=== PATIENT | female | born 1995 | race Caucasian/White ===

== ENCOUNTER → 2016-07-27 | Outpatient (CLI) | payer OTHER ==
[~2016-07-27] MED LIST: ISOVUE-370 76% 100ML VIAL (Q9967) As Ordered ONE
--- NOTE | 2016-07-28 17:03 | REP ---
Clinical: Infertility. Technique: Real time fluoroscopic evaluation performed in conjunction with the POWER AND RECOVERY SUPERINTENDENT. Findings: Rfid Specialist film of the pelvis is unremarkable. Contrast administration demonstrates normal contour to the uterus and normal bilateral fallopian tubes demonstrating bilateral spillage of contrast into the pelvis. Total fluoroscopic time: 41 seconds. Impression: 1. Bilateral fallopian tubes appear normal and patent. 2. Normal contour to the uterus. Signed by Gaudencio Nguyễn MD 07/28/2016 04:55 P
== END ==
LOC: M RADPRO 11:45
PROVIDERS: ATTEND Obstetrics & Gynecology
DX: N97.9 Female infertility, unspecified (principal)
CPT/HCPCS: 58340; 74740; Q9967

== ENCOUNTER → 2016-11-01 | Outpatient (CLI) | payer OTHER ==
[2016-11-07 00:06] LABS: HSV TYPE I IgM AB <1:10 titer (<1:10); HSV TYPE II IgM ABY <1:10 titer (<1:10)
== END ==
LOC: M WUC 16:07
PROVIDERS: ATTEND Nurse Practitioner Women's Health
DX: Z11.3 Encounter for screening for infections with a predominantly sexual mode of transmission (principal)

== ENCOUNTER → 2017-02-22 | Outpatient (REF) | payer OTHER | LOC: M LAB REF 17:22 | PROVIDERS: ATTEND Nurse Practitioner Women's Health | DX: N39.0 Urinary tract infection, site not specified (principal) ==

== ENCOUNTER → 2017-05-10 | Outpatient (REF) | payer OTHER | LOC: M LAB REF 19:56 | DX: R30.0 Dysuria (principal) | CPT/HCPCS: 87086 ==

== ENCOUNTER → 2017-12-21 | Outpatient (REF) | payer OTHER | LOC: M LAB REF 18:32 | DX: N30.01 Acute cystitis with hematuria (principal) | CPT/HCPCS: 87086 ==

== ENCOUNTER → 2018-02-05 | Outpatient (REF) | payer OTHER ==
[2018-02-05 12:06] LABS: HEMATOCRIT 41.3 % (36.0-47.0); HEMOGLOBIN 13.6 g/dl (12.0-15.5); MEAN CORPUSCULAR HEMOGLOBIN 28.3 pg (27.0-33.0); MEAN CORPUSCULAR HGB CONC 32.9 g/dl (32.0-36.5); PLATELET COUNT, AUTOMATED 289 10^3/uL (150-450); RED CELL DISTRIBUTION WIDTH 12.4 % (11.5-14.5); WHITE BLOOD COUNT 9.8 10^3/uL (4.0-10.0)
[2018-02-05 12:33] LABS: CONTROL LINE HCG INT CTR LINE PRESENT; HCG, SERUM QUALITATIVE POSITIVE (NEGATIVE)
[2018-02-05 12:41] LABS: ALBUMIN 3.5 GM/DL (3.2-5.2); ALKALINE PHOSPHATASE 71 U/L (45-117); ALT/SGPT 20 U/L (12-78); ANION GAP 8 MEQ/L (8-16); AST/SGOT 9 U/L (7-37); BILIRUBIN,TOTAL 0.5 MG/DL (0.2-1.0); BLOOD UREA NITROGEN 11 MG/DL (7-18); CALCIUM LEVEL 8.9 MG/DL (8.5-10.1); CARBON DIOXIDE LEVEL 28 MEQ/L (21-32); CHLORIDE LEVEL 101 MEQ/L (98-107); CREATININE FOR GFR 0.69 MG/DL (0.55-1.30); GLOMERULAR FILTRATION RATE > 60.0 (>60); GLUCOSE, FASTING 92 MG/DL (70-100); IRON (FE) 120 UG/DL (50-170); PERCENT SATURATION 30.4 % (13.2-45.0); POTASSIUM SERUM 4.1 MEQ/L (3.5-5.1); SODIUM LEVEL 137 MEQ/L (136-145); TOTAL IRON BINDING CAPACITY 395 UG/DL (250-450)
== END ==
LOC: M SFHCPLAZ 10:00
DX: Z00.00 Encounter for general adult medical examination without abnormal findings (principal)
CPT/HCPCS: 83550

== ENCOUNTER → 2018-02-26 | Outpatient (CLI) | payer OTHER ==
[2018-02-26 13:16] LABS: BASO # 0.1 10^3/uL (0.0-0.2); BASO % 0.5 % (0.0-1.0); EOS # 0.2 10^3/uL (0.0-0.50); EOS % 2.3 % (0.0-3.0); HEMATOCRIT 41.6 % (36.0-47.0); HEMOGLOBIN 13.6 g/dl (12.0-15.5); LYMPH # 2.1 10^3/uL (1.5-6.5); LYMPH % 22.6 % (24.0-44.0); MEAN CORPUSCULAR HEMOGLOBIN 28.2 pg (27.0-33.0); MEAN CORPUSCULAR HGB CONC 32.7 g/dl (32.0-36.5); MEAN CORPUSCULAR VOLUME 86.1 fl (80.0-96.0); MONO # 0.5 10^3/uL (0.0-0.8); MONO % 5.5 % (0.0-5.0); NEUTROPHILS # 6.4 10^3/uL (1.8-7.7); NEUTROPHILS % 67.9 % (36.0-66.0); PLATELET COUNT, AUTOMATED 290 10^3/uL (150-450); RED BLOOD COUNT 4.83 10^6/uL (4.00-5.40); WHITE BLOOD COUNT 9.5 10^3/uL (4.0-10.0)
[2018-02-26 14:37] LABS: CHLAMYDIA DNA AMPLIFICATION NEGATIVE (NEGATIVE); GC DNA AMPLIFICATION NEGATIVE (NEGATIVE)
[2018-02-27 10:25] LABS: HEPATITIS C VIRUS ABY INDEX 0.1 INDEX (<0.8); HIV 1&2 SCREEN CENTAUR NEGATIVE (NEGATIVE); RUBELLA IgG QUALITATIVE IMMUNE (IMMUNE)
== END ==
LOC: M SMT 10:44
PROVIDERS: ATTEND Advanced Practice Midwife
DX: Z36.89 Encounter for other specified antenatal screening (principal)

== ENCOUNTER → 2018-05-14 | Outpatient (CLI) | payer OTHER ==
--- NOTE | 2018-05-15 05:20 | REP ---
Clinical: Anatomical evaluation. Comparison: None . Findings: Examination demonstrates a single live intrauterine in variable presentation. motion is identified by technologist. Placenta is noted right lateral and grade grade zero without evidence for placenta previa or abruption. Amniotic fluid volume is normal. Cervix measures 6.1 cm in length and appears closed. No evidence for nuchal cord. Gestational age by LMP 20 weeks 4 days with NAVID 09/27/2018 . Gestational age by current measurements 20 weeks 4 days with NAVID 09/27/2018 . FHR equals 142 beats per minute. BPD 4.9 cm 20 weeks 6 days HC 17.7 cm 20 weeks 1 day AC 15.5 cm 20 weeks 5 days FL 3.4 cm 20 weeks 5 days HL 3.2 cm 20 weeks 5 days HC/AC ratio 1.14 Estimated weight 306 as I grams ( 48th percentile). Anatomical assessment demonstrates normal structures including cranium, choroid plexus, cavum, cerebellum/posterior fossa, facial features, lungs, four-chamber heart/ventricular outflow tracts, diaphragm, stomach, cord insertion/three-vessel cord, kidneys/bladder, spine, and extremities. Impression: Single live intrauterine in variable presentation demonstrating appropriate interval growth. Anatomical assessment is complete and normal. No gross abnormalities are identified. Electronically Signed by Gaudencio Nguyễn MD 05/15/2018 05:12 A
== END ==
LOC: M RAD 09:51
PROVIDERS: ATTEND Obstetrics & Gynecology
DX: Z34.82 Encounter for supervision of other normal pregnancy, second trimester (principal); Z3A.20 20 weeks gestation of pregnancy

== ENCOUNTER → 2018-06-11 | Outpatient (CLI) | payer OTHER ==
--- NOTE | 2018-06-11 08:55 | REP ---
RIGHT UPPER QUADRANT ABDOMINAL WALL ULTRASOUND: HISTORY: Soft mass, probable lipoma. The patient directs us to the region of the inframammary fold and states that the lump is not currently palpable. FINDINGS: Scanning of the right upper quadrant abdominal wall is performed. No cyst, mass or hernia is seen. IMPRESSION: Negative abdominal wall ultrasound. Mass not palpable at the time of the study. Electronically Signed by Victor Manuel Marquez MD 06/11/2018 09:14 A
== END ==
LOC: M RAD 06:26
PROVIDERS: ATTEND Nurse Practitioner Adult Health
DX: R19.01 Right upper quadrant abdominal swelling, mass and lump (principal)

== ENCOUNTER → 2018-07-18 | Outpatient (CLI) | payer OTHER ==
[2018-07-18 10:04] LABS: HEMATOCRIT 35.4 % (36.0-47.0); HEMOGLOBIN 11.2 g/dl (12.0-15.5); MEAN CORPUSCULAR HEMOGLOBIN 28.1 pg (27.0-33.0); MEAN CORPUSCULAR HGB CONC 31.6 g/dl (32.0-36.5); MEAN CORPUSCULAR VOLUME 88.9 fl (80.0-96.0); PLATELET COUNT, AUTOMATED 237 10^3/uL (150-450); RED BLOOD COUNT 3.98 10^6/uL (4.00-5.40); WHITE BLOOD COUNT 10.8 10^3/uL (4.0-10.0)
== END ==
LOC: M SMT 08:43
PROVIDERS: ATTEND Advanced Practice Midwife
DX: Z34.82 Encounter for supervision of other normal pregnancy, second trimester (principal); Z3A.00 Weeks of gestation of pregnancy not specified

== ENCOUNTER → 2018-09-10 | Outpatient (CLI) | payer OTHER | LOC: M SMT 08:44 | PROVIDERS: ATTEND Advanced Practice Midwife | DX: O26.893 Other specified pregnancy related conditions, third trimester (principal) ==

== ENCOUNTER 2018-10-05 17:15 | Inpatient (IN) | payer OTHER ==
[~2018-10-05] VITALS: Ht 154.9 cm; Wt 97.5 kg
[2018-10-05 17:38] VITALS: BP 145/91
[2018-10-05] MEDS ORDERED: PRENTAB9 PO (17:42)
[2018-10-05 17:51] VITALS: BP 141/90
[2018-10-05 17:54] VITALS: BP 141/88
[2018-10-05] MEDS ORDERED: VANCOMYCIN HCL 1,000 MG, VIAL MATE ADAPTER 1 EACH in D5W 250 ML IV SCH (18:00)
[2018-10-05] MEDS ORDERED: LACTATED RINGER'S 1000 ML IV STA (18:12)
--- NOTE | 2018-10-05 18:30 | NUR ---
L&D H&P HPI: 23 year old at 39+6 weeks estimated gestation. Expected date of confinement: 10/06/18. dated by an 8 week first TM US. Presents today complaining of leakage of fluid since this morning, but no painful uterine contractions. No bleeding. Reports regular movement. course uncomplicated labs: Blood type A+, antibody screen negative, rubella immune, VDRL nonreactive , hepatitis B surface antigen negative, HIV negative, hepatitis C antibody negative, GC/CT negative, aneuploidy/maternal serum screening: declined, 1 hour glucose challenge test: 127, GBS POSITIVE Vaccinations: Tdap 08/01/18 Flu vaccine 05/23/18 Radiology/OB US: no anomalies or placental abnormalities detected. History Past medical history: none Surgical history: none Medications: PNV Allergies: PCN (anaphylaxis) MANAGER MINING history: no STI/gHSV/dysplasia OB history: SAB x 1. Social history: no t/e/d Family history: No VTE. Objective Vitals: Normotensive, normal heart rate, afebrile Heart: Regular rate and rhythm. No murmurs, rubs or gallops. Lungs: Clear to auscultation bilaterally. No wheezes, crackles, rales or rhonchi. Abdomen: Uterine fundal height consistent with dates. No guarding or rebound tenderness. Extremities: No clubbing, cyanosis or edema. Normal deep tendon reflexes. Sterile vaginal exam: 1 cm, 50 %effacement, -3 station, cephalic, ruptured membranes: +Nitrazine/ferning. External monitoring: heart rate category 1 Tocodynamometer: rare ctx Assessment/Plan 23 year old at 39+6 weeks gestation. Diagnosis: prelabor rupture of membranes. Reassuring and maternal status. -Admit to labor and delivery with routine labs and orders -External monitoring and tocodynamometer -Pediatrics and anesthesia consultations as needed. -GBS prophylaxis with IV Vancomycin -Active management / Augment labor with Pitocin Dr. Awais Serrato, DO, FACOG
[2018-10-05 19:59] LABS: HEMATOCRIT 32.3 % (36.0-47.0); HEMOGLOBIN 10.2 g/dl (12.0-15.5); MEAN CORPUSCULAR HEMOGLOBIN 25.3 pg (27.0-33.0); MEAN CORPUSCULAR HGB CONC 31.6 g/dl (32.0-36.5); MEAN CORPUSCULAR VOLUME 80.1 fl (80.0-96.0); PLATELET COUNT, AUTOMATED 254 10^3/uL (150-450); RED BLOOD COUNT 4.03 10^6/uL (4.00-5.40); WHITE BLOOD COUNT 11.4 10^3/uL (4.0-10.0)
[2018-10-05 20:27] LABS: ALT/SGPT 20 U/L (12-78); BILIRUBIN,TOTAL 0.4 MG/DL (0.2-1.0); CREATININE FOR GFR 0.81 MG/DL (0.55-1.30); GLOMERULAR FILTRATION RATE > 60.0 (>60); LDH LACTATE DEHYDROGENASE 236 U/L (84-246); URIC ACID 3.2 MG/DL (2.6-6.0)
[2018-10-05] MEDS: LR 1,000 ML IV SCH (20:27)
[2018-10-05] MEDS ORDERED: OXYTOCIN DRIP 30 UNITS in APPROPRIATE DILUENT 1 EA IV SCH (23:15)
[2018-10-06] VITALS (35 sets, daily range): BP systolic 116–148; BP diastolic 58–90
--- NOTE | 2018-10-06 04:35 | NUR ---
Progress Note Pt comfortable. No VB VSS,normotensive, afebrile SVE: 50/-2 FHR: Cat I [place]: ctx's every 2-3 min; pit at 6mU/min Reassuring maternal and status. Difficulty achieving active labor over last several hours despite Pitocin -Continue Pitocin Lala Serrato DO
[2018-10-06] MEDS ORDERED: VANCOMYCIN HCL 1,000 MG, VIAL MATE ADAPTER 1 EACH in D5W 250 ML IV SCH (08:30)
--- NOTE | 2018-10-06 10:13 | NUR ---
Progress Note Pt starting to feel very uncomfortable with contractions. No bloody show, but has LOF/clear. VSS,normotensive, afebrile SVE: 490/-2, cephalic, clear fluid EFM: Cat I [place]: ctxs every 3-4min; pit at 16mU/min A/P: Early active labor. Reassuring maternal and status. -Continue Pitfela Serrato,
[2018-10-06] MEDS: LR 1,000 ML IV SCH ×2 (10:33→19:04)
[2018-10-06] MEDS ORDERED: FENTANYL 2MCG/ML ROPIVACAINE 0.2% IN 0.9% NACL 100ML IVBAG As Ordered ONE (11:25)
[2018-10-06] MEDS ORDERED: NALOXONE INJ 0.4 MG/1 ML VIAL (J2310) IV PRN (13:00)
[2018-10-06] MEDS ORDERED: EPIDURAL/PCA KEYS XX PRN (13:00)
[2018-10-06] MEDS ORDERED: diphenhydrAMINE INJ 50MG/ML VIAL (J1200) IV PRN (13:00)
[2018-10-06] MEDS ORDERED: LACTATED RINGER'S 1000 ML IV PRN (13:00)
[2018-10-06] MEDS ORDERED: ePHEDrine SULFATE 25 MG/5 ML(5MG/ML) SYRINGE IV PRN (13:00)
[2018-10-06] MEDS ORDERED: EPIDURAL COMMENT XX SCH (13:00)
[2018-10-06] MEDS ORDERED: FENTANYL/ROPIVACAINE/NACL BAG 100 ML EPIDURAL SCH (13:00)
[2018-10-06] MEDS ORDERED: REFRIGERATOR IV KEYS XX PRN (13:00)
[2018-10-06] MEDS ORDERED: ONDANSETRON 4MG/2ML VIAL (J2405) IV PRN ×2 (13:00→19:15)
--- NOTE | 2018-10-06 15:25 | NUR ---
Progress Note Pt starting to feel very uncomfortable with contractions. No bloody show, but has LOF/clear. VSS,normotensive, afebrile SVE: 5-6/100/-1, cephalic, clear fluid IUPC placed EFM: Cat I [place]: ctxs every 3-4min; pit at 20mU/min A/P: Active labor. Reassuring maternal and status. -Continue Pitocin Lala Serrato,
--- NOTE | 2018-10-06 17:41 | NUR ---
Progress Note Pt comfortable with epidural. +bloody show. VSS, normotensive, normal HR, afebrile Cat I FHR [place]: ctxs every 2-5min; Pit 20mU/min SVE: c/c/+1 A/P: Second stage of labor. Reassuring maternal and status. -Initiate maternal pushing efforts; pt instructed on pushing. Lala Serrato, DO
[2018-10-06] MEDS ORDERED: OXYTOCIN DRIP 30 UNITS in APPROPRIATE DILUENT 1 EA IV SCH (19:04)
[2018-10-06] MEDS ORDERED: ACETAMINOPHEN 500 MG TAB PO PRN (19:15)
[2018-10-06] MEDS ORDERED: DOCUSATE SODIUM 100 MG CAP PO PRN (19:15)
[2018-10-06] MEDS ORDERED: RHOGAM 300 MCG (1500 IU) INJ (J2790) IM SCH (19:15)
[2018-10-06] MEDS ORDERED: MEASLES,MUMPS,RUBELLA VACCINE INJ (MMR-II) (90707) SC SCH (19:15)
[2018-10-06] MEDS ORDERED: IBUPROFEN 800 MG TAB PO PRN (19:15)
[2018-10-06] MEDS ORDERED: DIBUCAINE 1% OINTMENT 30GM TOP PRN (19:15)
[2018-10-06] MEDS ORDERED: PROMETHAZINE 25 MG TAB PO PRN (19:15)
[2018-10-06] MEDS ORDERED: IBUPROFEN 600 MG TAB PO PRN (19:15)
[2018-10-06] MEDS ORDERED: ACETAMINOPHEN TAB 650MG DOSE (2X325MG) PO PRN (19:15)
--- NOTE | 2018-10-06 19:19 | NUR ---
Delivery note Spontaneous vaginal delivery Estimated gestational age at delivery: 40+0 weeks The active phase and second stage of labor progressed in normal fashion with epidural anesthesia. Patient received Pitocin labor augmentation. She received a full course of GBS prophylaxis. Pt had screened GBS+ The head delivered left occiput anterior and restituted left occiput transverse. No nuchal cord was noted. The anterior shoulder delivered with gentle downward guidance and the remainder of the body delivered with ease. Cord clamping was delayed for approximately 1 minute after delivery. After doubly clamping the cord, I had the FOB cut the cord. The was placed on the patient's chest for immediate bonding. [place] data: Apgars 8 and 10. weight 3140 grams 6 pounds, 15 ounces. Time of delivery: 1853. Sex: Male. The third stage of labor was actively managed with a bolus of IV Pitocin (30 units in 500 mL of normal saline). The placenta delivered completely intact with no missing cotyledons at 1858. A three-vessel cord with a central insertion was noted. After delivery of the placenta, the uterine fundus was approximately 2 cm below the umbilicus and firm. IV Pitocin was continued to maintain uterine tone. A normal, low level of uterine bleeding was noted. The cervix, vagina, vulva and perineum were inspected for lacerations. No laceration was noted. Excellent hemostasis was noted. Estimated blood loss: 200ml. All sponges, needles, and instruments were accounted for per PLANT MACHINIST department protocol. Awais Serrato D.O., F.Sebastian.Satish.OKayceG.
[2018-10-07] MEDS: LR 1,000 ML IV SCH (03:04)
[2018-10-07 05:50] VITALS: BP 128/73
[2018-10-07] MEDS: PRENATAL VITAMINS CHEWABLE TABLET PO SCH (09:19)
--- NOTE | 2018-10-07 09:23 | NUR ---
Day 1 Status post , uncomplicated Subjective Pain is well controlled. Lochia decreasing and minimal. Voiding spontaneously. Tolerating a regular diet. Ambulating without any assistance. Denies any subjective fever/chills/nausea/vomiting/headache/visual changes/shortness of breath/chest pain. Objective Vitals: Normotensive, normal heart rate, afebrile, adequate urine output. Heart: regular, rate, and rhythm. no murmurs/gallops/rubs Lungs: clear to auscultation bilaterally, no wheezes/crackles/rales/ronchi Abd: soft, nontender, nondistended, uterine fundus is 2cm below umbilicus and firm Ext: no significant edema, nontender, negative Bita's bilaterally. Assessment/Plan: day 1. Recovering well. Hemodynamically stable, afebrile, good pain control. -Routine care -Discharge to home tomorrow -Routine infectious, fever, pain, and bleeding precautions reviewed Dhaval Presley.Alyssa., F.A.C.O.G.
[2018-10-07 18:00] VITALS: BP 129/84
[2018-10-08] MEDS ORDERED: IBUP80TA PO (06:00)
[2018-10-08] MEDS ORDERED: ACET-683 PO (06:00)
[2018-10-08] MEDS: LR 1,000 ML IV SCH (06:03)
[2018-10-08 06:43] VITALS: BP 140/94
[2018-10-08] MEDS: PRENATAL VITAMINS CHEWABLE TABLET PO SCH (08:15)
== END 2018-10-08 10:30 | disposition home or self-care (01) | DRG 560 ==
LOC: M LDO 17:15 → M LDI 18:11 → M OBS 10-06 22:20
PROVIDERS: ADMIT Obstetrics & Gynecology; ATTEND Obstetrics & Gynecology
PROC: 10E0XZZ Delivery of Products of Conception, External Approach (ICD-10-PCS; principal; 2018-10-06)
DX: O42.02 Full-term premature rupture of membranes, onset of labor within 24 hours of rupture (principal); O99.824 Streptococcus B carrier state complicating childbirth; Z3A.39 39 weeks gestation of pregnancy; Z37.0 Single live birth

== ENCOUNTER → 2019-04-08 | Outpatient (CLI) | payer OTHER, MEDICAID ==
[~2019-04-08] MED LIST changes: +ACET-683 PO; +IBUP80TA PO; -ISOVUE-370 76% 100ML VIAL (Q9967) As Ordered ONE; +PRENTAB9 PO
[2019-04-08 13:02] LABS: BASO % 0.4 % (0.0-1.0); EOS # 0.1 10^3/uL (0.0-0.5); EOS % 1.4 % (0.0-3.0); LYMPH # 1.9 10^3/uL (1.5-5.0); MEAN CORPUSCULAR HEMOGLOBIN 27.7 pg (27.0-33.0); MEAN CORPUSCULAR HGB CONC 32.5 g/dl (32.0-36.5); MEAN CORPUSCULAR VOLUME 85.3 fl (80.0-96.0); MONO # 0.4 10^3/uL (0.0-0.8); MONO % 5.1 % (0.0-5.0); NEUTROPHILS # 5.4 10^3/uL (1.5-8.5); NEUTROPHILS % 68.6 % (36.0-66.0); PLATELET COUNT, AUTOMATED 276 10^3/uL (150-450); RED BLOOD COUNT 4.69 10^6/uL (4.00-5.40); WHITE BLOOD COUNT 7.9 10^3/uL (4.0-10.0)
[2019-04-08 16:13] LABS: CHLAMYDIA DNA AMPLIFICATION NEGATIVE (NEGATIVE); GC DNA AMPLIFICATION NEGATIVE (NEGATIVE)
[2019-04-09 10:45] LABS: HEPATITIS C VIRUS ABY INDEX < 0.0 INDEX (<0.8); HIV 1&2 SCREEN CENTAUR NEGATIVE (NEGATIVE); RUBELLA IgG QUALITATIVE IMMUNE (IMMUNE)
== END ==
LOC: M PLALAB 10:42
PROVIDERS: ATTEND Advanced Practice Midwife
DX: Z33.1 Pregnant state, incidental (principal)

== ENCOUNTER → 2019-06-10 | Outpatient (CLI) | payer OTHER ==
--- NOTE | 2019-06-10 10:23 | REP ---
REASON FOR EXAM: anatomy. COMPARISON EXAM: None. Multiple ultrasonographic images of the gravid uterus show a single living intrauterine gestation in the transverse head to the maternal left position. Doppler interrogation of the heart shows a heart rate of 160 beats per minute. The placenta is posterior and not low lying. The subjective amniotic fluid volume is within normal limits. The cervix measures 3.9 cm in length and is closed. Evaluation of the maternal adnexal spaces shows no abnormalities. BPD 3.9 cm = 17 weeks 6 days HC 14.7 cm = 17 weeks 6 days AC 12.7 cm = 18 weeks 2 days FL 2.9 cm = 18 weeks 6 days The estimated weight is 241 grams which is at the 52nd percentile for an 18 week 2 day gestational age. Structures visualized are unremarkable as follows: thalami, cavum septum pellucidum, cerebellum, cistern magna, cerebral ventricles, stomach, kidneys, cord insertion, three vessel umbilical cord, urinary bladder, spine, upper and lower extremities. Structures not well seen are as follows: facial features, four chamber heart, and both right and left ventricular outflow tracts. The technologist has placed notation in the worksheet that "in some views there appears to be an anechoic area near the heart and left pleural cavity. This is seen separate from stomach and above diaphragm." I cannot confirm that finding my the images provided. IMPRESSION: Single living intrauterine gestation as described above with an estimated gestational age of 18 weeks 1 day via composite criteria and an estimated date of delivery of 11/10/2019 by today's exam. No anomalies were detected, however, I recommend followup to better visualize those anatomical structures not well seen today as described above and to reevaluate the potential finding seen by the technologist also described above.
== END ==
LOC: M WHC 08:23
PROVIDERS: ATTEND Specialist
DX: Z34.82 Encounter for supervision of other normal pregnancy, second trimester (principal); Z3A.18 18 weeks gestation of pregnancy

== ENCOUNTER → 2019-07-15 | Outpatient (CLI) | payer OTHER ==
--- NOTE | 2019-07-16 04:26 | REP ---
Clinical: Anatomical evaluation. Comparison: 06/10/2019 . Findings: Examination demonstrates a single live intrauterine in cephalic presentation. motion is identified by technologist. Placenta is noted posterior and grade I without evidence for placenta previa or abruption. Amniotic fluid volume is normal. Cervix measures 4.3 cm in length and appears closed. No evidence for nuchal cord. Gestational age by LMP 23 weeks 2 days with NAVID 11/09/2019 . Gestational age by current measurements 23 weeks 5 days with NAVID 11/12/2019 . FHR equals 140 beats per minute. Estimated weight 688 grams ( 78th percentile). Anatomical assessment demonstrates normal structures including cranium, choroid plexus, cavum, cerebellum/posterior fossa, facial features, lungs, four-chamber heart/ventricular outflow tracts, diaphragm, stomach, cord insertion/three-vessel cord, kidneys/bladder. Impression: Single live intrauterine in cephalic presentation demonstrating appropriate interval growth. In conjunction with prior examination anatomical assessment is complete and normal.
== END ==
LOC: M WHC 11:16
PROVIDERS: ATTEND Advanced Practice Midwife
DX: Z36.2 Encounter for other antenatal screening follow-up (principal); Z3A.23 23 weeks gestation of pregnancy

== ENCOUNTER → 2019-08-05 | Outpatient (REF) | payer OTHER, MEDICAID ==
[2019-08-05 14:16] LABS: HEMATOCRIT 36.2 % (36.0-47.0); HEMOGLOBIN 11.4 g/dl (12.0-15.5); MEAN CORPUSCULAR HEMOGLOBIN 27.2 pg (27.0-33.0); MEAN CORPUSCULAR HGB CONC 31.5 g/dl (32.0-36.5); MEAN CORPUSCULAR VOLUME 86.4 fl (80.0-96.0); PLATELET COUNT, AUTOMATED 230 10^3/uL (150-450); RED BLOOD COUNT 4.19 10^6/uL (4.00-5.40); WHITE BLOOD COUNT 11.2 10^3/uL (4.0-10.0)
== END ==
LOC: M PLALAB 10:50
PROVIDERS: ATTEND Advanced Practice Midwife
DX: Z34.92 Encounter for supervision of normal pregnancy, unspecified, second trimester (principal)

== ENCOUNTER → 2019-09-23 | Outpatient (CLI) | payer OTHER ==
--- NOTE | 2019-09-23 13:46 | REP ---
OB ULTRASOUND: Real-time sonographic evaluation of the gravid uterus performed. There is a single intrauterine gestation. The estimated gestational age is 33 weeks 2 days, EDC 11/09/2019. The cervix is closed and measures 2.2 cm in length. heart rate 155 beats per minute. Amniotic fluid within normal limits. YESENIA 13.6, normal range 8.2 to 24.6. position is vertex. Placenta posterior with no previa.
== END ==
LOC: M WHC 10:21
PROVIDERS: ATTEND Advanced Practice Midwife
DX: Z34.83 Encounter for supervision of other normal pregnancy, third trimester (principal)

== ENCOUNTER → 2019-10-14 | Outpatient (REF) | payer OTHER, MEDICAID | LOC: M SFHCWAGY 08:43 | PROVIDERS: ATTEND Specialist | DX: Z11.8 Encounter for screening for other infectious and parasitic diseases (principal) ==

== ENCOUNTER 2019-11-11 23:43 | Inpatient (IN) | payer OTHER, MEDICAID ==
[~2019-11-11] VITALS: Ht 154.9 cm; Wt 94.3 kg
[2019-11-12] VITALS (66 sets, daily range): BP systolic 86–131; BP diastolic 51–84
[2019-11-12 00:51] LABS: HEMATOCRIT 31.2 % (36.0-47.0); HEMOGLOBIN 9.7 g/dl (12.0-15.5); MEAN CORPUSCULAR HEMOGLOBIN 24.3 pg (27.0-33.0); MEAN CORPUSCULAR HGB CONC 31.1 g/dl (32.0-36.5); PLATELET COUNT, AUTOMATED 204 10^3/uL (150-450); WHITE BLOOD COUNT 9.3 10^3/uL (4.0-10.0)
[2019-11-12] MEDS ORDERED: LACTATED RINGER'S 1000 ML IV STA (01:46)
[2019-11-12] MEDS ORDERED: OXYTOCIN DRIP 30 UNITS in IV 1 EA IV SCH ×2 (02:15→14:47)
--- NOTE | 2019-11-12 02:18 | HPEPDOC ---
Obstetrical History & Physical General Date of Admission Nov 11, 2019 at 23:43 History of Present Illness Meeta is a 24yo with SIUP at 40w3d by lmp c/w early u/s who presents today for scheduled elective IOL at term. She feels well with no complaints, having occasional ctx that she feels but not regular/painful yet. No LOF or vaginal bleeding. Good movement. 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 Surgical History: Denies/None Family History Significant Family History: No pertinent family hx Social History Marital Status: Family situation: Spouse/partner home Psychosocial History: No pertinent psych hx * Smoker: non-smoker Alcohol: Denies Drugs: denies Allergies Coded Allergies: Penicillins (Verified Allergy, Severe, "THROAT CLOSES", 10/05/18) Medications Scheduled No.137/Iron/Folic Acd ( Vitamin Tablet) 1 Each Tablet, 1 TAB PO DAILY Scheduled PRN Acetaminophen (Acetaminophen) 500 Mg Tablet, 1,000 MG PO Q6HP PRN for PAIN Ibuprofen (Ibuprofen) 800 Mg Tablet, 800 MG PO Q8HP PRN for PAIN Physical Examination Physical Examination GENERAL: Alert and oriented times three. ABDOMEN: Gravid and non-tender to touch. FETUS: Is vertex (VTX) by sterile vaginal examination (SVE) EXTREMITIES: No edema of BLE Laboratory Data 24H LABS Laboratory Tests 2 11/11/19 23:50: Serology Scanned Report Hepatitis B Testing 11/12/19 00:45: Nucleated Red Blood Cells % (auto) 0.0 CBC/BMP Laboratory Tests 11/12/19 00:45 Pertinent Laboratoy Data Blood Type: A+ RBC Antibody Screen: Negative HIV: Negative Hepatitis B: Negative Hepatitis C: Negative Rapid Plasma Reagin: Nonreactive Rubella: Immune Chlamydia/Gonorrhea: Negative Group B Streptococcus: Negative Glucose Tolerance Test: 89 Anatomy Ultrasound Ultrasound Date: Jun 10, 2019 Placenta Location: Posterior Normal Anatomy: Yes Placenta Previa: No Steroid Therapy Steroid Therapy: No Vaginal Examination Dilation: 4 cm Effacement: 80% Station: -2 Cervical Consistency: Soft Cervical Position: Posterior Presentation: Cephalic presentation Assessment Heart Rate (FHR): 150 Variability: Moderate Accelerations: Positive Decelerations: None Tocometer Contractions: Yes Frequency: irregular Assessment/Plan Assessment Meeta is a 24yo with SIUP at 40w3d by lmp c/w early u/s undergoing elective IOL at term. Vitals wnl, benign exam. Cat I FHRT with rare ctx. Cep halic, SCE 80/-2, membrane sweeping done. Uncomplicated PMhx and course. Proven to [id number]. GBS negative. Plan Admit and orient. Power Systems Engineer and consent. Diet: clear liquids Group B Streptococcus (GBS) negative Labs and intravenous (IV) per unit protocol. Counseled on Pitocin and induction of labor (IOL). Lactated Ringers (LR): Bolus 800 mL, then at 125 mL/hr. Candidate for IV pain medications in latent labor and epidural in active labor MD Shubham Mcclelland Katrina D MD Nov 12, 2019 02:18
[2019-11-12] MEDS ORDERED: BUTORPHANOL 2 MG/ML INJ (J0595) IV PRN (02:45)
[2019-11-12] MEDS ORDERED: FENTANYL 2MCG/ML ROPIVACAINE 0.2% IN 0.9% NACL 100ML IVBAG As Ordered ONE (05:55)
[2019-11-12] MEDS ORDERED: ePHEDrine SULFATE 25 MG/5 ML(5MG/ML) SYRINGE As Ordered ONE (07:08)
[2019-11-12] MEDS: ePHEDrine SULFATE 25 MG/5 ML(5MG/ML) SYRINGE IV PRN ×2 (07:11→07:30)
[2019-11-12] MEDS: LR 1,000 ML IV SCH ×2 (07:34→10:31)
[2019-11-12] MEDS ORDERED: NALOXONE INJ 0.4MG/1ML VIAL (J2310 PER 1MG) IV PRN (08:15)
[2019-11-12] MEDS ORDERED: LACTATED RINGER'S 1000 ML IV PRN (08:15)
[2019-11-12] MEDS ORDERED: ONDANSETRON 4MG/2ML VIAL IV PRN (08:15)
[2019-11-12] MEDS ORDERED: EPIDURAL/PCA KEYS XX PRN (08:15)
[2019-11-12] MEDS ORDERED: diphenhydrAMINE 50MG/ML VIAL (J1200) IV PRN (08:15)
[2019-11-12] MEDS ORDERED: REFRIGERATOR IV KEYS XX PRN (08:15)
[2019-11-12] MEDS ORDERED: EPIDURAL COMMENT XX SCH (08:15)
[2019-11-12] MEDS ORDERED: FENTANYL/ROPIVACAINE/NACL BAG 100 ML EPIDURAL SCH (08:15)
[2019-11-12] MEDS ORDERED: ACETAMINOPHEN TAB 650MG DOSE (2X325MG) PO PRN (15:00)
[2019-11-12] MEDS ORDERED: MEASLES,MUMPS,RUBELLA VACCINE INJ (MMR-II) (90707) SC SCH (15:00)
[2019-11-12] MEDS ORDERED: DIBUCAINE 1% OINTMENT 30GM TOP PRN (15:00)
[2019-11-12] MEDS ORDERED: ACETAMINOPHEN 500 MG TAB PO PRN (15:00)
[2019-11-12] MEDS ORDERED: METHYLERGONOVINE MALEATE 0.2 MG TAB PO PRN (15:00)
[2019-11-12] MEDS ORDERED: RHOGAM 300 MCG (1500 IU) INJ (J2790) IM SCH (15:00)
[2019-11-12] MEDS ORDERED: IBUPROFEN 600MG TAB PO PRN (15:00)
[2019-11-12] MEDS ORDERED: DOCUSATE SODIUM 100 MG CAP PO PRN (15:00)
[2019-11-12] MEDS ORDERED: SLF 3 ML SYR IV PRN (16:00)
[2019-11-12] MEDS: IBUPROFEN 800 MG TAB PO PRN (17:47)
[2019-11-12] MEDS: SLF 3 ML SYR IV SCH (19:54)
[2019-11-13] MEDS: IBUPROFEN 800 MG TAB PO PRN ×2 (05:43→16:48)
[2019-11-13] MEDS: SLF 3 ML SYR IV SCH (05:43)
[2019-11-13 06:09] VITALS: BP 120/62
[2019-11-13] MEDS: PRENATAL VITAMINS CHEWABLE TABLET PO SCH (07:50)
[2019-11-13 18:23] VITALS: BP 121/84
[2019-11-14] MEDS: IBUPROFEN 800 MG TAB PO PRN (02:02)
[2019-11-14 05:28] VITALS: BP 123/78
[2019-11-14] MEDS: PRENATAL VITAMINS CHEWABLE TABLET PO SCH (08:31)
== END 2019-11-14 11:15 | disposition home or self-care (01) | DRG 560 ==
LOC: M LDI 23:43 → M OBS 11-12 17:20
PROVIDERS: ADMIT Obstetrics & Gynecology; ATTEND Obstetrics & Gynecology
PROC: 10E0XZZ Delivery of Products of Conception, External Approach (ICD-10-PCS; principal; 2019-11-11)
PROC: 3E033VJ Introduction of Other Hormone into Peripheral Vein, Percutaneous Approach (ICD-10-PCS; 2019-11-11)
DX: O48.0 Post-term pregnancy (principal); Z37.0 Single live birth; Z3A.40 40 weeks gestation of pregnancy

== ENCOUNTER → 2020-02-10 | Outpatient (REF) | payer OTHER, MEDICAID | LOC: M SFHCWAGY 17:15 | PROVIDERS: ATTEND Nurse Practitioner Women's Health | DX: Z12.4 Encounter for screening for malignant neoplasm of cervix (principal); Z01.419 Encounter for gynecological examination (general) (routine) without abnormal findings ==

== ENCOUNTER → 2021-04-18 | Outpatient (CLI) | payer OTHER ==
[2021-04-18 15:14] LABS: HEMATOCRIT 36.6 % (36.0-47.0); HEMOGLOBIN 11.9 g/dl (12.0-15.5); MEAN CORPUSCULAR HEMOGLOBIN 27.5 pg (27.0-33.0); MEAN CORPUSCULAR HGB CONC 32.5 g/dl (32.0-36.5); MEAN CORPUSCULAR VOLUME 84.5 fl (80.0-96.0); PLATELET COUNT, AUTOMATED 226 10^3/uL (150-450); RED BLOOD COUNT 4.33 10^6/uL (4.00-5.40); WHITE BLOOD COUNT 9.4 10^3/uL (4.0-10.0)
[2021-04-18 16:31] LABS: HEPATITIS C VIRUS ABY INDEX < 0.0 INDEX (<0.8); HIV 1&2 SCREEN CENTAUR NEGATIVE (NEGATIVE)
[2021-04-18 17:35] LABS: GC DNA AMPLIFICATION NEGATIVE (NEGATIVE)
== END ==
LOC: M PLALAB 13:54
PROVIDERS: ATTEND Advanced Practice Midwife
DX: Z34.91 Encounter for supervision of normal pregnancy, unspecified, first trimester (principal)

== ENCOUNTER → 2021-06-24 | Outpatient (CLI) | payer OTHER | LOC: M WHC 13:53 | PROVIDERS: ATTEND Specialist | DX: Z34.82 Encounter for supervision of other normal pregnancy, second trimester (principal); Z3A.19 19 weeks gestation of pregnancy ==

== ENCOUNTER → 2021-08-04 | Outpatient (CLI) | payer OTHER | LOC: M WHC 09:56 | PROVIDERS: ATTEND Obstetrics & Gynecology | DX: Z36.2 Encounter for other antenatal screening follow-up (principal); Z3A.25 25 weeks gestation of pregnancy ==

== ENCOUNTER → 2021-08-24 | Outpatient (CLI) | payer OTHER, MEDICAID ==
[2021-08-24 16:39] LABS: HEMATOCRIT 33.8 % (36.0-47.0); HEMOGLOBIN 10.8 g/dl (12.0-15.5); MEAN CORPUSCULAR HEMOGLOBIN 27.9 pg (27.0-33.0); MEAN CORPUSCULAR VOLUME 87.3 fl (80.0-96.0); PLATELET COUNT, AUTOMATED 210 10^3/uL (150-450); RED BLOOD COUNT 3.87 10^6/uL (4.00-5.40); WHITE BLOOD COUNT 10.5 10^3/uL (4.0-10.0)
[2021-08-24 18:28] LABS: GC DNA AMPLIFICATION NEGATIVE (NEGATIVE)
== END ==
LOC: M PLALAB 12:19
PROVIDERS: ATTEND Obstetrics & Gynecology
DX: Z34.92 Encounter for supervision of normal pregnancy, unspecified, second trimester (principal); Z3A.22 22 weeks gestation of pregnancy

== ENCOUNTER → 2021-10-19 | Outpatient (REF) | payer OTHER, MEDICAID | LOC: M SFHCWAGY 12:56 | PROVIDERS: ATTEND Obstetrics & Gynecology | DX: Z36.85 Encounter for antenatal screening for Streptococcus B (principal); Z3A.36 36 weeks gestation of pregnancy ==

== ENCOUNTER 2021-11-16 08:48 | Inpatient (IN) | payer OTHER, MEDICAID ==
[2021-11-16] VITALS (20 sets, daily range): BP systolic 108–179; BP diastolic 62–103
[~2021-11-16] VITALS: Ht 154.9 cm; Wt 94.9 kg
[2021-11-16] MEDS ORDERED: HOME MED LIST COMPLETE! XX SCH (09:10)
[2021-11-16] MEDS ORDERED: LACTATED RINGER'S 1000 ML IV STA (09:31)
[2021-11-16] MEDS ORDERED: TRANEXAMIC ACID INJection 1,000 MG in NS 100 ML IV PRN (09:35)
[2021-11-16] MEDS ORDERED: OXYTOCIN INJ 10 UNITS/ML VIAL (J2590) IM PRN (09:35)
[2021-11-16] MEDS ORDERED: OXYTOCIN DRIP 30 UNITS in IV 1 EA IV PRN ×4 (09:35)
[2021-11-16] MEDS ORDERED: CARBOPROST TROMETHAMINE 250 MCG/ML AMP IM PRN (09:35)
[2021-11-16] MEDS ORDERED: LR 1,000 ML IV SCH (09:35)
[2021-11-16] MEDS ORDERED: LIDOCAINE 1% MDV 20ML VIAL INFIL PRN (09:35)
[2021-11-16] MEDS ORDERED: METHYLERGONOVINE MALEATE 0.2 MG/ML VIAL (J2210) IM PRN ×2 (09:35→12:05)
[2021-11-16 10:05] LABS: HEMATOCRIT 33.2 % (36.0-47.0); HEMOGLOBIN 10.3 g/dl (12.0-15.5); MEAN CORPUSCULAR HEMOGLOBIN 24.5 pg (27.0-33.0); MEAN CORPUSCULAR VOLUME 78.9 fl (80.0-96.0); PLATELET COUNT, AUTOMATED 196 10^3/uL (150-450); RED BLOOD COUNT 4.21 10^6/uL (4.00-5.40); WHITE BLOOD COUNT 11.9 10^3/uL (4.0-10.0)
[2021-11-16] MEDS ORDERED: OXYTOCIN 30 UNITS IN 0.9% NaCl 500ML IV BAG (J2590) As Ordered ONE (10:13)
[2021-11-16] MEDS ORDERED: DOCUSATE SODIUM 100MG CAPSULE PO PRN (10:55)
[2021-11-16] MEDS ORDERED: ACETAMINOPHEN TAB 650MG DOSE (2X325MG) PO PRN (10:55)
[2021-11-16] MEDS ORDERED: ACETAMINOPHEN 500 MG TAB PO PRN (10:55)
[2021-11-16] MEDS ORDERED: METHYLERGONOVINE MALEATE 0.2 MG TAB PO PRN (10:55)
[2021-11-16] MEDS ORDERED: RHOGAM 300 MCG (1500 IU) INJ (J2790) IM SCH (10:55)
[2021-11-16] MEDS ORDERED: IBUPROFEN 600MG TAB PO PRN (10:55)
[2021-11-16] MEDS ORDERED: IBUPROFEN 800 MG TAB PO PRN (10:55)
[2021-11-16] MEDS ORDERED: OXYTOCIN DRIP 30 UNITS in IV 1 EA IV SCH (12:05)
[2021-11-16] MEDS: METHYLERGONOVINE MALEATE 0.2 MG TAB PO SCH ×2 (15:01→20:25)
[2021-11-17] MEDS: METHYLERGONOVINE MALEATE 0.2 MG TAB PO SCH ×4 (00:58→12:23)
[2021-11-17 05:54] VITALS: BP 129/76
[2021-11-17] MEDS ORDERED: PRENATAL VITAMINS CHEWABLE TABLET PO SCH (09:00)
[2021-11-18] MEDS ORDERED: MEASLES,MUMPS,RUBELLA VACCINE INJ (MMR-II) (90707) SC.IMMUN ONE (09:00)
== END 2021-11-17 18:00 | disposition home or self-care (01) | DRG 560 ==
LOC: M LDO 08:48 → M LDI 09:24 → M OBS 17:19
PROVIDERS: ADMIT Advanced Practice Midwife; ATTEND Advanced Practice Midwife
PROC: 10E0XZZ Delivery of Products of Conception, External Approach (ICD-10-PCS; principal; 2021-11-16)
DX: O80 Encounter for full-term uncomplicated delivery (principal); Z37.0 Single live birth; Z3A.39 39 weeks gestation of pregnancy

== ENCOUNTER → 2023-02-19 | Outpatient (REF) | payer OTHER | LOC: M PLALAB 10:28 | PROVIDERS: ATTEND Advanced Practice Midwife | DX: Z12.4 Encounter for screening for malignant neoplasm of cervix (principal) ==

== ENCOUNTER → 2023-11-09 | Outpatient (REF) | payer OTHER | LOC: M LAB REF 12:48 | PROVIDERS: ATTEND Nurse Practitioner Family | DX: R30.0 Dysuria (principal) ==

== ENCOUNTER → 2023-12-27 | Outpatient (CLI) | payer OTHER ==
[2023-12-27 13:54] LABS: BASO # 0.1 10^3/uL (0.0-0.2); BASO % 0.6 % (0.0-1.0); EOS # 0.2 10^3/uL (0.0-0.5); EOS % 2.4 % (0.0-3.0); HEMATOCRIT 42.3 % (36.0-47.0); LYMPH % 24.1 % (24.0-44.0); MEAN CORPUSCULAR HEMOGLOBIN 29.2 pg (27.0-33.0); MEAN CORPUSCULAR HGB CONC 33.1 g/dl (32.0-36.5); MEAN CORPUSCULAR VOLUME 88.3 fl (80.0-96.0); MONO # 0.4 10^3/uL (0.0-0.8); MONO % 4.5 % (2.0-8.0); NEUTROPHILS # 5.8 10^3/uL (1.5-8.5); NEUTROPHILS % 68.2 % (36.0-66.0); PLATELET COUNT, AUTOMATED 235 10^3/uL (150-450); RED BLOOD COUNT 4.79 10^6/uL (4.00-5.40); WHITE BLOOD COUNT 8.5 10^3/uL (4.0-10.0)
[2023-12-27 13:58] LABS: ALBUMIN 3.5 G/DL (3.2-5.2); ALKALINE PHOSPHATASE 82 U/L (46-116); ALT/SGPT 17 U/L (7.0-40); AST/SGOT 10 U/L (<34); BILIRUBIN,TOTAL 0.7 MG/DL (0.3-1.2); BLOOD UREA NITROGEN 11 MG/DL (9-23); CALCIUM LEVEL 9.7 MG/DL (8.5-10.1); CARBON DIOXIDE LEVEL 29 MMOL/L (20-31); CHLORIDE LEVEL 108 MMOL/L (98-107); CHOLESTEROL LEVEL 190 MG/DL (<200); CHOLESTEROL RISK RATIO 3.32 (<5); CREATININE FOR GFR 0.89 MG/DL (0.55-1.30); GLOMERULAR FILTRATION RATE > 60.0 (>60); GLUCOSE, FASTING 83 MG/DL (60-100); HDL CHOLESTEROL 57.2 MG/DL (>40); LDL CHOLESTEROL 109.2 MG/DL (<100); NON-HDL-C 132.8 MG/DL; POTASSIUM SERUM 4.4 MMOL/L (3.5-5.1); SODIUM LEVEL 141 MMOL/L (136-145); TOTAL PROTEIN 7.2 G/DL (5.7-8.2); TRIGLYCERIDES LEVEL 118 MG/DL (<150)
[2023-12-27 13:59] LABS: FREE T4 1.18 NG/DL (0.89-1.76); THYROID STIMULATING HORMONE 1.242 uIU/ML (0.55-4.78)
[2023-12-27 14:19] LABS: HEMOGLOBIN A1c 5.2 % (4.0-6.0)
[2023-12-30 18:02] LABS: HSV SOURCE Serum; HSV-1 DNA Not Detected (Not Detected); HSV-2 DNA Not Detected (Not Detected)
== END ==
LOC: M PLALAB 11:13
PROVIDERS: ATTEND Student in an Organized Health Care Education/Training Program
DX: E55.9 Vitamin D deficiency, unspecified (principal); Z76.89 Persons encountering health services in other specified circumstances; Z13.1 Encounter for screening for diabetes mellitus; B00.1 Herpesviral vesicular dermatitis

== ENCOUNTER → 2023-12-27 | Outpatient (REF) | payer OTHER | LOC: M SFHCPLAZ 10:55 | PROVIDERS: ATTEND Student in an Organized Health Care Education/Training Program | DX: Z76.89 Persons encountering health services in other specified circumstances (principal); E55.9 Vitamin D deficiency, unspecified; Z83.49 Family history of other endocrine, nutritional and metabolic diseases; Z13.1 Encounter for screening for diabetes mellitus; B00.1 Herpesviral vesicular dermatitis ==

== ENCOUNTER → 2024-11-06 | Outpatient (CLI) | payer OTHER ==
[2024-11-06 14:11] LABS: PLATELET COUNT, AUTOMATED 248 10^3/uL (150-450)
[2024-11-06 15:15] LABS: HIV 1&2 SCREEN NEGATIVE (NEGATIVE)
[2024-11-06 15:23] LABS: HEPATITIS C VIRUS ABY INDEX < 0.02 INDEX (<0.8)
[2024-11-06 15:33] LABS: Trichomonas vaginalis (AMP) NOT DETECTED (NEGATIVE)
[2024-11-06 15:55] LABS: GC DNA AMPLIFICATION NEGATIVE (NEGATIVE)
== END ==
LOC: M PLALAB 10:59
PROVIDERS: ATTEND Advanced Practice Midwife
DX: Z34.81 Encounter for supervision of other normal pregnancy, first trimester (principal)

== ENCOUNTER → 2024-11-06 | Outpatient (REF) | payer OTHER | LOC: M PLALAB 10:43 | PROVIDERS: ATTEND Advanced Practice Midwife | DX: Z53.9 Procedure and treatment not carried out, unspecified reason (principal) ==

== ENCOUNTER → 2025-01-14 | Outpatient (CLI) | payer OTHER | LOC: M WHC 12:57 | PROVIDERS: ATTEND Student in an Organized Health Care Education/Training Program | DX: Z34.80 Encounter for supervision of other normal pregnancy, unspecified trimester (principal) ==

== ENCOUNTER → 2025-02-16 | Outpatient (CLI) | payer OTHER | LOC: M WHC 14:53 | PROVIDERS: ATTEND Specialist | DX: Z34.80 Encounter for supervision of other normal pregnancy, unspecified trimester (principal) ==

== ENCOUNTER → 2025-02-27 | Outpatient (CLI) | payer OTHER ==
[2025-02-27 15:48] LABS: PLATELET COUNT, AUTOMATED 213 10^3/uL (150-450)
[2025-02-27 15:49] LABS: GLUCOSE CHALLENGE TEST 1 HOUR 77 MG/DL (LESS THAN 140)
[2025-02-27 16:25] LABS: HIV 1&2 SCREEN NEGATIVE (NEGATIVE)
[2025-02-27 16:33] LABS: HEPATITIS C VIRUS ABY INDEX 0.04 INDEX (<0.8)
[2025-02-27 16:56] LABS: Trichomonas vaginalis (AMP) NOT DETECTED (NEGATIVE)
[2025-02-27 17:19] LABS: GC DNA AMPLIFICATION NEGATIVE (NEGATIVE)
== END ==
LOC: M PLALAB 10:14
PROVIDERS: ATTEND Specialist
DX: Z34.80 Encounter for supervision of other normal pregnancy, unspecified trimester (principal)